=== PATIENT | female | born 1990 | race Caucasian/White ===

== ENCOUNTER 2019-02-23 22:43 | Emergency (ER) | payer OTHER ==
[~2019-02-23] VITALS: Ht 165.1 cm; Wt 79.9 kg
--- NOTE | 2019-02-23 23:15 | NUR ---
PT IN IMAGING AT THIS TIME.
--- NOTE | 2019-02-23 23:52 | NUR ---
PT C/O VAGINAL BLEEDING STARTING TODAY. WENT TO ED IN [place] AND WAS D/C'D AND TOLD TO COME TO ED IF WORSE. REPORTS BLEEDING HAS BECOME WORSE. PT REPORTS BRING APPX 5 WEEKS , DENIES PRIOR PREGNANCIES. PT DENIES N/V/D, ABD CRAMPING. PT DENIES ANY OTHER C/O AT THIS TIME. PT REPORTS FILLING X1 PAD IN 15-30 MIN. PT CONNECTED TO MONITORING, CALL LIGHT WITHIN REACH, ALL SAFETY MEASURES IN PLACE. IMAGING PERFORMED. PT UPDATED ON POC.
--- NOTE | 2019-02-24 01:12 | NUR ---
ERP IN ROOM TO PERFORM PELVIC EXAM AT THIS TIME.
[2019-02-24 01:52] VITALS: BP 112/74
== END 2019-02-24 01:55 | disposition home or self-care (01) ==
LOC: ED 23:52
DX: O03.4 Incomplete spontaneous abortion without complication (principal)
CPT/HCPCS: 76830; 99284